=== PATIENT | male | born 1945 | race Caucasian/White ===

== ENCOUNTER 2017-03-22 14:27 | Emergency (ER) | payer MEDICARE, OTHER ==
[~2017-03-22] VITALS: Ht 170.2 cm; Wt 90.5 kg
[2017-03-22 14:32] VITALS: BP 174/96; PULSE 59; RESP 14; O2SAT 97
--- NOTE | 2017-03-22 15:14 | ED.REPORT ---
HPI-General Illness Date of Service Mar 22, 2017 ED Provider: Dr. Gill The pt is a 71y/o male with a hx of A-fib (on Eliquis), and BPH (s/p prostatectomy) who is sent to the ED from his PCP's office due to urinary retention since 2200 last night. He last urinated yesterday afternoon. The bladder scan today shows 160cc. Associated sx include suprapubic abdominal pain that is about 4/10 in severity and back pain that came on today. He denies fecal and urinary incontinence, hematuria, numbness and tingling in lower extremities, upper abdominal pain, chest pain, SOB, fever, vision change, and hx of cancer. He has never experienced similar sx before. Nursing Notes Stated Complaint: NEEDS A BARRETT CATHETER Chief Complaint: Male Abdominal Pain Nursing Notes Reviewed: Yes Allergies: Coded Allergies: morphine (Verified Allergy, Unknown, 03/22/17) urinary retention Uncoded Allergies: ANTIHISTAMINES (Allergy, Unknown, 03/22/17) Urinary retention General Time Seen by MD: 15:14 Chief Complaint Other (urinary retention) Hx Obtained From: Patient Arrived By: Walk-in Sudden in Onset?: Yes Onset Occurred: Yesterday Symptom Duration: Since onset Location: : Abdomen: Back Quality: Painful Severity: Current: Moderate Severity: Maximum: Moderate Recent Healthcare: Recent doctor visit Similar Sx Previous: No Past Medical History Past Medical History BPH (s/p prostatectomy) A-fib Past Surgical History Left Knee surgery Bilateral shoulder surgery prostatectomy Family History Mother had diabetes Both parents due to CVA Smoking History Never Smoker Social History Alcohol Use: "Social" Drug Use: Denies drug use Other Social History: Good social support Ambulatory Status Independent Review of Systems Reports: urinary retention Denies: fecal and urinary incontinence Denies: tingling in lower extremities Full Review of Systems Constitutional: Denies: Fever Respiratory: Denies: Shortness of breath Cardiovascular: Denies: Chest pain GI: Reports: Abdominal pain (suprapubic) Musculoskeletal: Reports: Back pain Neurologic: Denies: Numbness (lower extremities), Vision change Complete sys rev & neg: except as marked. Physical Exam Nursing note and vitals reviewed. Constitutional: Well-developed, well-nourished. Not diaphoretic. Head: Normocephalic and atraumatic. Mouth/Throat: Oropharynx is clear and moist. No oropharyngeal exudate. Eyes: EOM are normal. Pupils are equal, round, and reactive to light. Neck: Supple, no tracheal deviation. Cardiovascular: Normal rate, regular rhythm. Equal and intact distal pulses throughout. Pulmonary/Chest: Effort normal and breath sounds normal. No respiratory distress. Abdominal: Soft. No distension. Suprapubic tenderness, rebound, or guarding. Bowel sounds present. Musculoskeletal: Range of motion grossly intact, moving all extremities. No edema or tenderness appreciated. Neurological: AOx3. Grossly nonfocal exam. Strength and sensation intact and equal to bilateral upper and lower extremities. Skin: Warm and dry, no rashes or pallor appreciated. Psychiatric: Appropriate mood and affect. Behavior appears normal. Vital Signs Vital Signs Date Time Temp Pulse Resp B/P Pulse Ox O2 Delivery O2 Flow Rate FiO2 03/22/17 19:08 36.9 59 149/88 94 Room Air 03/22/17 14:32 36.8 59 14 174/96 97 Room Air Interpretation & Diagnostics PROCEDURE: MRI LUMBAR SPINE WITH AND WITHOUT CONTRAST ([id number]) IMPRESSION: 1. Multilevel degenerative disc disease. 2. Multilevel symmetric uptake. 3. Severe L3-L4 central canal stenosis. Moderate L4-L5 central canal narrowing. Mild to moderate L2 and L3 central canal narrowing. Mild L5-S1 central canal narrowing. 4. Severe bilateral L3-L4 neural foraminal narrowing. Severe right and moderate left L4-L5 and L5-S1 neural foraminal narrowing. Moderate to severe bilateral L2-L3 neural foraminal narrowing. 5. No abnormal post contrast enhancement. Dictated by: Rosanne Niño MD, PhD on 03/22/2017 at 18:04 Approved by: Rosanne Niño MD, PhD on 03/22/2017 at 18:09 Lab Results Interpretation Result Diagram: 03/22/17 1550 03/22/17 1550 Test 03/22/17 15:42 03/22/17 15:50 Urine Color Straw (YELLOW) Urine Appearance Clear (CLEAR,HAZY) Urine pH 5.5 (5.0-8.0) Urine Specific [place] 1.020 (1.003-1.035) Urine Protein Negativemg/dL (NEG,TRACE) Urine Glucose (UA) Negativemg/dL (NEGATIVE) Urine Ketones Negativemg/dL (NEGATIVE) Urine Occult Blood Small (NEGATIVE) Urine Nitrite Negative (NEGATIVE) Urine Bilirubin Negative (NEGATIVE) Urine Urobilinogen Normalmg/dL (NORMAL) Urine Leukocyte Esterase Negative (NEGATIVE) Urine RBC 3-10/hpf (0-2) Urine WBC 0-5/hpf (0-5) Urine Epithelial Cells None/hpf (NONE-MOD) Urine Crystals None seen (NONE SEEN) Urine Bacteria None/hpf (NONE-FEW) Urine Hyaline Casts None/lpf (NONE) Urine Granular Casts None seen (NONE SEEN) Urine Waxy Casts None seen (NONE SEEN) Urine Red Blood Cell Casts None seen (NONE SEEN) Urine White Blood Cell Casts None seen (NONE SEEN) Urine Mucus None seen (None Seen) Urine Trichomonas None seen (NONE SEEN) Urine Yeast None (NONE SEEN) Urinalysis Comment None Urine Culture Reflexed Not indicated White Blood Count 7.0th/mm3 (3.8-10.1) Red Blood Count 5.26mil/mm3 (4.40-5.80) Hemoglobin 16.7g/dL (13.8-17.2) Hematocrit 47.5% (41.0-50.0) Mean Corpuscular Volume 90.3fL (81-100) Mean Corpuscular Hemoglobin 31.7pg (27.0-35.0) Mean Corpuscular Hemoglobin Concent 35.2% (32.0-37.0) Red Cell Distribution Width 12.3% (12.3-15.4) Platelet Count 238bil/L (150-400) Neutrophils (%) (Auto) 75.0% (40-74) Lymphocytes (%) (Auto) 11.1% (14-46) Monocytes (%) (Auto) 10.9% (4-12) Eosinophils (%) (Auto) 2.6% (0-5) Basophils (%) (Auto) 0.1% (0-3) Prothrombin Time 10.8sec (8.1-12.5) Prothromb Time International Ratio 1.01ratio Sodium Level 139mEq/L (134-144) Potassium Level 4.7mEq/L (3.5-5.2) Chloride Level 105mEq/L (97-108) Carbon Dioxide Level 21mmol/L (18-29) Blood Urea Nitrogen 23mg/dL (8-27) Creatinine 1.49mg/dL (0.76-1.27) Estimat Glomerular Filtration Rate 49mL/min (>59) Glucose Level 93mg/dL (60-99) Calcium Level 10.0mg/dL (8.5-10.1) Total Bilirubin 0.5mg/dL (0.0-1.2) Aspartate Amino Transf (AST/SGOT) 22U/L (0-50) Alanine Aminotransferase (ALT/SGPT) 22U/L (0-44) Alkaline Phosphatase 68U/L (25-160) Total Protein 6.6g/dL (6.4-8.4) Albumin 3.9g/dL (3.4-5.0) Hold Candelario Top Tube Received (Received) Re-Eval/Medical Decision Med Decision/Clinical Course Differential diagnosis includes prostatic hyperplasia, BPH, prostate cancer, penile obstruction or urethral obstruction, compressive spinal cord syndrome, medication side effect, etc. does have some back pain. No focal neurologic deficits or new neurological complaints. No recent medication changes. Bladder scan demonstrates 160cc urine. Laboratory studies notable for unremarkable CBC, CMP with creatinine of 1.49, small amount of occult blood in the urine with 3-10 RBC and no sign of infection. I called his urologist as noted below; he feels that the patient does not need a Barrett catheter at this time and would like to see him in clinic tomorrow instead. I discussed the patient's kidney function with him; he will follow this up. I discussed the above with the patient at length. Given his back pain, as well as his urinary retention, an MRI was obtained but this did not demonstrate any signs of a compressive syndrome at this time. Given above, reasonable to discharge home with follow-up tomorrow, careful return precautions. Patient agreeable to the plan as stated, no further questions. Time of Eval: 16:35 Re-Evaluation/Progress Note: Discussed lab results, diagnosis, plan to place a barrett, MRI and observe for a few hours. The pt understands and agrees with the plan. All questions answered. Time of Eval: 18:21 Re-Evaluation/Progress Note: Rechecekd pt. Discussed the consultation with Dr. Jones, diagnosis and plan to discharge. The pt understands and agrees with the plan. All questions answered. F/U instruction and RTER warning given. All questions addressed. Time of Eval: 18:45 Re-Evaluation/Progress Note: Pt's repeat bladder scan shows 156cc. Consultation : Referral / Consult Name: Timoteo Jones MD Consulted With: Urology Call Returned at: 16:44 Cryptographer: Will see in office, Agrees with eval, Agrees with plan Note: Dr. Jones recommends doing an MRI but holding off on the barrett. Call tomorrow for a direct visualization in the office. No further intervention at this time. Counseled Regarding: Diagnosis, Lab results, Need for follow-up, When/why to return to ED Discharge & Departure Primary Impression: Urinary retention Additional Impressions: Acute kidney injury (nontraumatic) Lumbar spinal stenosis Disposition: Home Discharge Condition All VS Reviewed: Yes Patient Instructions: Acute Kidney Injury (GEN), Chronic Urinary Retention in Women (GEN), Lumbar Spinal Stenosis (ED) Additional Instructions: Thank you for entrusting us with your care today. Your imaging results were reassuring and did not demonstrate that you had any evidence of acute spinal cord injury, however the spinal canal is very narrow and I want her to follow up with your regular doctor on this. If you develop any new or worsening bowel or bladder incontinence, worsening urinary retention , numbness or tingling in her legs, weakness, fever, chills, or if there is anything else of concern to you, return to the emergency Department immediately. As we discussed, call from Dr. Jones's office for an appointment first thing tomorrow for an appointment in the next one to two days. We have decided to hold off on placing a Barrett catheter following Dr. Jones's guidance, however you do need very close followup and if your symptoms return overnight return to the ED immediately, including if you develop any new or worsening abdominal pain or anything else of concern to you. In addition, also as we discussed, your kidney function was somewhat concerning today and I would like you to get repeat labs drawn in the next 1-2 days. You can discuss this with Dr. Jones or your regular doctor tomorrow. Thank you for allowing us to be a part of your care in the ED today. Referrals: Joe Loredo MD (PCP) Timoteo Jones MD Scribe Attestation Portions of this note were transcribed by Wai Babb. I,, personally performed the history, physical exam and medical decision-making;I reviewed and confirmed the accuracy of the information in the transcribed note. Signed by Ange Lara. 03/22/17 copies to: Joe Loredo MD; Timoteo Jones MD, William B MD Mar 22, 2017 15:14 Wai Babb Mar 22, 2017 15:21
[2017-03-22 15:53] LABS: APPEARANCE,URINE CLEAR (CLEAR,HAZY); COLOR,URINE STRAW (YELLOW); OCCULT BLOOD,URINE SMALL (NEGATIVE); PH,URINE 5.5 (5.0-8.0); UROBILINOGEN,URINE NORMAL (NORMAL)
[2017-03-22 15:59] LABS: BASOPHILS % (AUTO) 0.1 % (0-3); EOSINOPHILS % (AUTO) 2.6 % (0-5); MONOCYTES % (AUTO) 10.9 % (4-12); Mean Corpuscular Hemoglobin 31.7 pg (27.0-35.0); Mean Corpuscular Volume 90.3 fL (81-100); Platelet Count 238 bil/L (150-400)
[2017-03-22 16:17] LABS: INR 1.01 ratio
--- NOTE | 2017-03-22 18:10 | DRSVH ---
PROCEDURE: MRI LUMBAR SPINE WITH AND WITHOUT CONTRAST ([id number]) INDICATIONS: urinary retention, back pain; eval cauda equina TECHNIQUE: Noncontrast sagittal T1 spin echo and T2 fast spin echo, sagittal STIR, axial T1 and T2 fast spin ech o through the lumbar spine. In cases with scoliosis, additional coronal T2 fast spin echo may be per formed. After the administration of contrast, sagittal and axial T1 spin echo with fat saturation th rough the lumbar spine. COMPARISON: None. FINDINGS: Image quality: Excellent. Alignment and curvature: There is normal bony alignment. Marrow: Reactive endplate changes noted adjacent to the L2 and L3, L3-L4, L4-L5 and L5-S1 discs. No acute vertebral body compression fractures. No suspicious marrow enhancement. Spinal cord: Conus medullaris terminates at the L2 level. Visualized spinal cord demonstrates tirso l signal, without suspicious enhancement. Paraspinous soft tissues: No paravertebral masses or abnormal enhancement. L1-L2: Normal appearance. L2-L3: Loss of disc signal and mild loss of disc height. Mild, diffuse disc bulge. Moderate facet and mild ligamentum flavum hypertrophy. Mild to moderate narrowing of the central canal secondary to disc disease and facet hypertrophy. Moderate to severe bilateral neural foraminal narrowing seconda ry to disc and facet disease. L3-L4: Loss of disc signal and mild loss of disc height. Moderate, diffuse disc bulge. Moderate to severe facet and moderate ligamentum flavum hypertrophy. Severe central stenosis secondary to disc disease and facet hypertrophy. Severe bilateral neural foraminal narrowing secondary to disc and fac et disease. L4-L5: Loss of disc signal and slight loss of disc height. Mild, diffuse disc bulge. Moderate bila teral facet hypertrophy. Mild ligamentum flavum hypertrophy. Moderate narrowing of the central ngozi l secondary to disc disease and posterior element hypertrophy. Severe right and moderate left neurof oraminal narrowing secondary to disc and facet disease. L5-S1: Loss of disc signal and mild loss of disc height. Mild, diffuse disc bulge. Small central d isc protrusion superimposed upon diffuse disc bulge. Moderate right mild left facet hypertrophy. Mi ld narrowing of the central canal secondary to disc disease and facet hypertrophy. Severe right and moderate left neural foraminal narrowing secondary to disc and facet disease. IMPRESSION: 1. Multilevel degenerative disc disease. 2. Multilevel symmetric uptake. 3. Severe L3-L4 central canal stenosis. Moderate L4-L5 central canal narrowing. Mild to moderate L2 and L3 central canal narrowing. Mild L5-S1 central canal narrowing. 4. Severe bilateral L3-L4 neural foraminal narrowing. Severe right and moderate left L4-L5 and L5-S 1 neural foraminal narrowing. Moderate to severe bilateral L2-L3 neural foraminal narrowing. 5. No abnormal post contrast enhancement. Dictated by: Rosanne Niño MD, PhD on 03/22/2017 at 18:04 Approved by: Rosanne Niño MD, PhD on 03/22/2017 at 18:09
[2017-03-22 19:08] VITALS: BP 149/88; PULSE 59; O2SAT 94
== END 2017-03-22 19:12 | disposition home or self-care (01) ==
LOC: SED 14:27
DX: R33.9 Retention of urine, unspecified (principal); N17.9 Acute kidney failure, unspecified; M48.06 Spinal stenosis, lumbar region; I48.91 Unspecified atrial fibrillation; Z90.79 Acquired absence of other genital organ(s); Z87.438 Personal history of other diseases of male genital organs; Z88.5 Allergy status to narcotic agent
CPT/HCPCS: 36415; 51798; 72158; 80053; 81000; 85025; 85610; 99284; A9585